=== PATIENT | male | born 1985 | race Caucasian/White ===

== ENCOUNTER 2021-01-14 07:33 | Day surgery (SDC) | payer BC, SELFPAY ==
[~2021-01-14] VITALS: Ht 185.4 cm; Wt 113.4 kg
[~2021-01-14 07:33] MED LIST: CEFAZOLIN SOD 1 GM in D5W 50 ML IV ONE
[2021-01-14] MEDS ORDERED: SEVOFLURANE 15 MIN GAS INH ONE (09:20)
[2021-01-14] MEDS ORDERED: BUPIVACAINE /PF 0.25% 30 ML VIAL INJ ONE (09:20)
[2021-01-14] MEDS ORDERED: PROPOFOL 200MG/ 20ML VIAL (DIPRIVAN) IV ONE (09:20)
[2021-01-14] MEDS ORDERED: DEXAMETHASONE SOD PHOSPHATE 4 MG/ML VIAL IVP ONE (09:20)
[2021-01-14] MEDS ORDERED: MIDAZOLAM HCL 5 MG/5 ML VIAL IVP ONE (09:20)
[2021-01-14] MEDS ORDERED: LR 1,000 ML IV.SOLN IV ONE (09:20)
[2021-01-14] MEDS ORDERED: MEPERIDINE 100 MG INJ. 100 MG/ML VIAL IM ONE (09:20)
[2021-01-14] MEDS ORDERED: NS IRRIG SOLN 1000 ML IR ONE (09:20)
[2021-01-14] MEDS ORDERED: fentaNYL CITRATE/PF 100 MCG/2 ML AMP IVP ONE (09:20)
[2021-01-14] MEDS ORDERED: LR 1,000 ML IV SCH (10:00)
[2021-01-14] MEDS ORDERED: ONDANSETRON HCL 4 MG/2 ML VIAL IVP PRN (10:00)
[2021-01-14] MEDS ORDERED: MEPERIDINE HCL/PF 25 MG/ML DISP.SYRIN IVP PRN (10:00)
[2021-01-14] MEDS ORDERED: HYDROmorphone 1 INJ. 1 MG/ML CARTRIDGE IVP PRN ×3 (10:00→10:30)
[2021-01-14] MEDS ORDERED: HYDROcodone/ACETAMIN 5-325 MG TAB (NORCO/ VICODIN) PO PRN ×2 (10:30)
[2021-01-14] MEDS ORDERED: D5/0.45 NS 1,000 ML IV SCH (10:30)
[2021-01-14] MEDS ORDERED: HYDROcodone/ACETAMIN 5-325 MG TAB (NORCO/ VICODIN) ONE (12:00)
[2021-01-14 12:09] VITALS: BP_SYST 135
== END 2021-01-14 12:40 | disposition home or self-care (01) ==
LOC: SOR 07:33 → SMU 07:33 → SOR 12:40
PROVIDERS: ATTEND Colon & Rectal Surgery
DX: L02.215 Cutaneous abscess of perineum (principal); I48.0 Paroxysmal atrial fibrillation; Z79.82 Long term (current) use of aspirin; Z79.899 Other long term (current) drug therapy
CPT/HCPCS: 10061; 46270; 88304; J1100; J2175; J2250; J2704; J3010; J3490; J7120; U0003; J0690; J7060